=== PATIENT | male | born 1995 | race Caucasian/White ===

== ENCOUNTER 2018-12-26 15:55 | Emergency (ER) | payer OTHER ==
[~2018-12-26] VITALS: Ht 180.3 cm; Wt 90.9 kg
[2018-12-26 15:55] VITALS: BP 129/80
--- NOTE | 2018-12-26 17:01 | REP ---
Clinical: Trauma. Technique: Axial noncontrast images through the facial bones to include the mandible with coronal and sagittal re-formations. Findings: The osseous structures are intact and there is no evidence for fracture or dislocation. Specifically, the bilateral zygomatic arches, nasal bones, and mandible including bilateral temporomandibular joints appear normal and symmetric. Mucoperiosteal thickening of the ethmoid and maxillary sinuses suggests mild sinusitis. No fluid level to suggest occult injury. The bilateral orbits including the globes and intraconal contents appear symmetric and normal. The surrounding soft tissues are grossly unremarkable. Impression: Mild sinus disease. No evidence for acute pathology or trauma/injury. Electronically Signed by Kadeem Clancy MD 12/26/2018 04:53 P
--- NOTE | 2018-12-28 08:34 | REP ---
Clinical: head injury. Comparison: none. Findings: The lateral ventricles, sulci, and cisterns are normal in position and appearance. Coe-white differentiation is maintained. No acute intracranial hemorrhage, mass/mass effect, pathology or trauma/injury. No evidence for acute infarction. No extra-axial fluid collection. Calvarium is intact. Paranasal sinuses and mastoid air cells are clear. Impression: 1. Prominent posterior fossa. Consider outpatient MRI to evaluate for possible Dandy Walker variant. 2. No evidence for acute intracranial pathology or trauma/injury. Electronically Signed by Kadeem Clancy MD 12/28/2018 08:25 A
--- NOTE | 2018-12-28 16:56 | ED PDOC ---
Post-Departure Follow-Up ft meri pate faxed formal report of ct head for fu Sam Menendez MD Dec 28, 2018 16:56
== END 2018-12-26 17:42 | disposition home or self-care (01) ==
LOC: M ED 15:55
DX: S00.83XA Contusion of other part of head, initial encounter (principal); W19.XXXA Unspecified fall, initial encounter; Y92.89 Other specified places as the place of occurrence of the external cause; Y93.23 Activity, snow (alpine) (downhill) skiing, snowboarding, sledding, tobogganing and snow tubing